=== PATIENT | male | born 1990 | race American Indian/Alaskan Native ===

== ENCOUNTER 2021-09-17 07:36 | Emergency (ER) | payer OTHER ==
--- NOTE | 2021-09-17 08:02 | EDM.PDOC ---
ED HPI GENERAL MEDICAL PROBLEM - General Chief Complaint: General Stated Complaint: 2 POS COVID TESTS 20 MIN AGO / Time Seen by Provider: 09/17/21 07:40 Source of Information: Reports: Patient, RN, RN Notes Reviewed History Limitations: Reports: No Limitations - History of Present Illness INITIAL COMMENTS - FREE TEXT/NARRATIVE: Pt presents to ER by POV stating he was sent from [facility] due to testing positive twice this morning as he checked in for NG training duty. Pt states he just arrives here from his home in [place]. Pt denies fever, headache, cough, chest pain, shortness of breath, loss of sense of taste or smell, or any other symptoms. Pt has never received a COVID vaccine. Onset: Today Location: Reports: Generalized Associated Symptoms: Reports: No Other Symptoms - Related Data Allergies Allergy/AdvReac Type Severity Reaction Status Date / Time No Known Allergies Allergy Verified 09/17/21 07:51 Home Meds: Home Meds . [No Known Home Meds] 09/17/21 [History] Past Medical History - Past Health History Medical/Surgical History: Denies Medical/Surgical History Social & Family History - Family History Family Medical History: No Pertinent Family History ED ROS GENERAL - Review of Systems Review Of Systems: Comprehensive ROS is negative, except as noted in HPI. ED EXAM, GENERAL - Physical Exam Exam: See Below Exam Limited By: No Limitations General Appearance: Alert, WD/WN, No Apparent Distress Eye Exam: Bilateral Eye: Normal Inspection Nose: Normal Inspection Throat/Mouth: Normal Inspection Head: Atraumatic, Normocephalic Neck: Normal Inspection Respiratory/Chest: No Respiratory Distress, Lungs Clear, Normal Breath Sounds, No Accessory Muscle Use, Chest Non-Tender Cardiovascular: Regular Rate, Rhythm Neurological: Alert, Oriented, CN II-XII Intact, Normal Cognition, Normal Gait, No Motor/Sensory Deficits Psychiatric: Normal Affect, Normal Mood Skin Exam: Warm, Dry, Intact, Normal Color, No Rash Course - Vital Signs Last Recorded V/S: Last Vital Signs Temp 97.9 F 09/17/21 07:51 Pulse 74 09/17/21 07:51 Resp 18 09/17/21 07:51 BP 147/99 H 09/17/21 07:51 Pulse Ox 96 09/17/21 07:51 - Re-Assessments/Exams Free Text/Narrative Re-Assessment/Exam: 09/17/21 Pt has no symptoms, normal exam and two positive rapid COVID tests this morning. I see no indication for retesting the pt at this time as he has already had 2 positives today. Departure - Departure Time of Disposition: 07:54 Disposition: Home, Self-Care 01 Condition: Good Clinical Impression: Asymptomatic COVID-19 virus infection - Discharge Information *PRESCRIPTION DRUG MONITORING PROGRAM REVIEWED*: Not Applicable *COPY OF PRESCRIPTION DRUG MONITORING REPORT IN PATIENT ALLYN: Not Applicable Instructions: What You Should Know About COVID-19 to Protect Yourself and Others - CDC, 10 Things You Can Do to Manage Your COVID-19 Symptoms at Home - [facility] (04/29/2021) Forms: ED Department Discharge Additional Instructions: Isolate per CDC guidelines for 10 days, or until symptoms free and two negative COVID tests if symptoms last more than 10 days. Rest, drink plenty of fluids to maintain hydration. Use Tylenol or Ibuprofen as needed for fevers or body aches. [facility] Emergency Department is not a designated COVID testing center. Return to the ER if you develop a medical emergency such as difficulty breathing. Sepsis Event Note (ED) - Focused Exam Vital Signs: Vital Signs Temp Pulse Resp BP Pulse Ox 09/17/21 07:51 97.9 F 74 18 147/99 H 96
== END 2021-09-17 08:08 | disposition home or self-care (01) ==
LOC: DL.ED 07:36
DX: U07.1 COVID-19 (principal)
CPT/HCPCS: 99282